=== PATIENT | male | born 1985 | race Caucasian/White ===

== ENCOUNTER 2017-06-17 21:42 | Emergency (ER) | payer MEDICAID, OTHER ==
[~2017-06-17] VITALS: Ht 167.6 cm; Wt 63.8 kg
[2017-06-17 21:45] VITALS: BP 117/81
[2017-06-17] MEDS ORDERED: DIPH,PERTUSS(ACELL),TET VAC/PF 0.5 ML IM-VACC ONE ×2 (22:00→22:21)
[2017-06-17] MEDS ORDERED: LIDOCAINE 1%, 10ML INFIL ONE (22:00)
[2017-06-17] MEDS ORDERED: BACITRACIN ZINC OINT 500U/GM, 0.9 GM ONE (22:46)
== END 2017-06-17 22:51 | disposition home or self-care (01) ==
LOC: ED 22:45
DX: S51.811A Laceration without foreign body of right forearm, initial encounter (principal); X58.XXXA Exposure to other specified factors, initial encounter; Y93.89 Activity, other specified; Y92.009 Unspecified place in unspecified non-institutional (private) residence as the place of occurrence of the external cause; Y99.8 Other external cause status
CPT/HCPCS: 12001; 90471; 90715